=== PATIENT | male | born 1965 | race Caucasian/White ===

== ENCOUNTER 2024-04-07 06:05 | Day surgery (SDC) | payer OTHER ==
[~2024-04-07] VITALS: Ht 173 cm; Wt 110.2 kg
[2024-04-07] MEDS ORDERED: MIDAZOLAM HCL 5 MG/5 ML VIAL ONE (07:00)
[2024-04-07] MEDS ORDERED: SIMETHICONE 40 MG/0.6 ML ML ONE (07:00)
[2024-04-07] MEDS ORDERED: MEPERIDINE 100 MG INJ. 100 MG/ML VIAL ONE (07:00)
[2024-04-07 10:56] VITALS: O2SAT 96
[2024-04-07 13:25] VITALS: BP_SYST 177; PULSE 80; RESP 19
== END 2024-04-07 11:00 | disposition home or self-care (01) ==
LOC: SDS 06:05 → SMU 06:05 → SDS 11:00
PROVIDERS: ATTEND Internal Medicine Gastroenterology
DX: Z12.11 Encounter for screening for malignant neoplasm of colon (principal); D12.3 Benign neoplasm of transverse colon; D12.0 Benign neoplasm of cecum; K57.30 Diverticulosis of large intestine without perforation or abscess without bleeding; K64.8 Other hemorrhoids; K63.89 Other specified diseases of intestine; E11.9 Type 2 diabetes mellitus without complications; Z79.84 Long term (current) use of oral hypoglycemic drugs; Z90.49 Acquired absence of other specified parts of digestive tract; Z98.890 Other specified postprocedural states
CPT/HCPCS: 45385; 82948; 88305; 99152; G0378; J2250; J2175